=== PATIENT | female | born 1940 | race Caucasian/White ===

== ENCOUNTER → 2016-08-28 | Outpatient (CLI) | payer MEDICARE ==
--- NOTE | 2016-09-02 11:28 | RESP ---
DATE OF SERVICE: The patient underwent full pulmonary function testing including bronchodilator. The FEV1 to FVC ratio is 75%, FEV1 was 80% of predicted at 2.10 liters, FVC was 2.78 liters at 80% of predicted. There was no significant bronchodilator response. Total lung capacity was preserved at 5.54 liters at 95% of predicted. Diffusion capacity was preserved. IMPRESSION: Pulmonary function testing revealed no significant evidence of restrictive or obstructive lung disease or lung disorder. LIZBET OVALLE MD DR: ANGEL/sharron JOB#: [id number] / [id number] GISSELLE Miranda MD, WILLIAM MD
== END | disposition home or self-care (01) ==
LOC: PF 09:35
PROVIDERS: ATTEND Internal Medicine Pulmonary Disease
DX: R06.02 Shortness of breath (principal)
CPT/HCPCS: 94060; 94729

== ENCOUNTER → 2018-02-26 | Outpatient (CLI) | payer MEDICARE ==
--- NOTE | 2018-02-26 14:48 | KCIC ---
MRI Lumbar Spine without contrast History: Low back pain, radiculopathy, dull ache in the bilateral legs Technique: Multiplanar, multi sequential noncontrast MR imaging was performed of the lumbar spine. Contrast: None Comparison: None Findings: Lumbar vertebral body stature is overall maintained other than small Schmorl's nodes. There is minimal grade 1 anterior spondylolisthesis at L2-L3 and L4-5. There is advanced degenerative disc disease L3-4 and to a somewhat lesser degree at L4-5, minimally at L2-3, mild disc desiccation L1-2 and L5-S1. Conus terminates at L1-L2. There is nonspecific edema of the posterior subcutaneous fat of the lower back. There is mild lumbar levoscoliosis centered about L4. L1-L2: There is negligible posterior protrusion. Spinal canal and neural foramina are adequate. There is tiny posterior annular tear. L2-L3: There is mild buckling of the ligamentum flavum and mild to moderate facet degenerative change. There is mild partial uncovering of the posterior aspect of the disc due to spondylolisthesis and minimal bulge. Spinal canal is overall adequate. Neural foramina are overall adequate. L3-L4: There is mild facet hypertrophic change. There is minimal disc osteophyte complex greater in the far right lateral recess. Spinal canal is overall adequate. Left neural foramen is adequate, mild narrowing of the right neural foramen. L4-L5: There is moderate facet degenerative change greater on the right. There is minimal buckling of the ligamentum flavum and prominence of posterior epidural fat. There is minimal disc osteophyte complex and bulge. There is mild narrowing of the far left lateral recess. There is mild narrowing of the neural foramina bilaterally. L5-S1: There is moderate facet hypertrophic change greater on the right. There is mild buckling of the ligamentum flavum. There is mild narrowing of the far left lateral recess from posteriorly. There is mild narrowing of the left neural foramen, right neural foramen adequate. Impression: 1. There is advanced degenerative disc disease L3-4 and to a somewhat lesser degree at L4-5 with spondylosis at the same levels. 2. There is minimal grade 1 anterior spondylolisthesis L2-3 and L4-5, multilevel facet degenerative change. 3. There is mild narrowing of left lateral recess from posteriorly at L5-S1, also minimal narrowing of the far left lateral recess L4-5. 4. There is mild neural foramina compromise on the right at L3-4, on the left at L5-S1, and bilaterally at L4-5. Electronically signed by: Barry Messer MD (02/26/2018 2:45 PM) [facility]
== END | disposition home or self-care (01) ==
LOC: KCIC MRI 13:24
PROVIDERS: ATTEND Internal Medicine
DX: M43.16 Spondylolisthesis, lumbar region (principal); M51.16 Intervertebral disc disorders with radiculopathy, lumbar region; M47.896 Other spondylosis, lumbar region; M48.07 Spinal stenosis, lumbosacral region; M48.061 Spinal stenosis, lumbar region without neurogenic claudication
CPT/HCPCS: 72148

== ENCOUNTER 2018-05-21 21:24 | Observation (INO) | payer MEDICARE ==
[~2018-05-21] VITALS: Ht 175.3 cm; Wt 129.4 kg
[2018-05-21 22:38] LABS: BASO # 0.1 x10^3/uL (0.0-0.2); BASO % 1 % (0-3); EOS # 0.2 x10^3/uL (0.0-0.7); EOS % 3 % (0-3); HEMATOCRIT 38.3 % (36.0-47.0); HEMOGLOBIN 13.6 g/dL (12.0-15.5); LYMPH # 1.2 x10^3/uL (1.0-4.8); LYMPH % 18 % (24-48); MEAN CORPUSCULAR HEMOGLOBIN 33 pg (25-35); MEAN CORPUSCULAR HGB CONC 35 g/dL (31-37); MEAN CORPUSCULAR VOLUME 94 fL (79-100); MONO # 0.6 x10^3/uL (0.0-1.1); MONO % 8 % (0-9); NEUT # 4.6 x10^3uL (1.8-7.7); NEUT % 69 % (31-73); PLATELET COUNT 140 x10^3/uL (140-400); RED BLOOD COUNT 4.08 x10^6/uL (3.50-5.40); RED CELL DISTRIBUTION WIDTH 13.5 % (11.5-14.5); WHITE BLOOD COUNT 6.7 x10^3/uL (4.0-11.0)
[2018-05-21 22:51] LABS: CALCIUM 9.2 mg/dL (8.5-10.1); CREATININE 1.5 mg/dL (0.6-1.0); GFR 33.9; POTASSIUM 4.3 mmol/L (3.5-5.1)
[2018-05-21 22:52] LABS: PROTHROMBIN TIME PATIENT 12.4 SEC (11.7-14.0)
[2018-05-21 22:57] LABS: TOTAL BILIRUBIN 0.4 mg/dL (0.2-1.0); TOTAL PROTEIN 7.7 g/dL (6.4-8.2)
--- NOTE | 2018-05-21 22:58 | RAD ---
EXAM: Chest, single view. HISTORY: Chest pain COMPARISON: None. FINDINGS: A frontal view of the chest is obtained. There is stable dextro positioning of a prominent cardiac silhouette. There is no infiltrate, pleural effusion or pneumothorax. The heart is normal in size. IMPRESSION: 1. No acute pulmonary finding. 2. Stable dextro positioning of a prominent cardiac silhouette. Electronically signed by: Asuncion Saldaña MD (05/21/2018 10:55 PM) [facility]
[2018-05-21] MEDS ORDERED: LIDO:MAALOX 1:1 20 ML SINGLE DOSE. SWSW ONE (23:00)
[2018-05-21] MEDS ORDERED: ASPIRIN CHEWABLE 81 MG TABLET. PO ONE (23:00)
--- NOTE | 2018-05-21 23:04 | PHYS DOC ---
Past Medical History Past Medical History: Diabetes-Type I, Diabetes-Type II, GERD, Hypertension Additional Past Surgical Histo: bilateral rotar cuff repair, knee replacement, multiple foot surgery Alcohol Use: None Drug Use: None Adult General Chief Complaint Chief Complaint: CHEST PAIN HPI HPI Patient is a 77 year old f p/w chest pain. Onset around 10 AM after she was eating. She felt a sharp pain just in her midsternum area was radiating over into the right upper chest area. It would come and go throughout the day very time she tried to eat something it would come back. Then later on this evening he was coming more frequently it would last about 30 seconds or minutes she said she didn't really think it was worse with walking but she's not really sure she has mild shortness of breath associated with it symptoms are currently better. Review of Systems Review of Systems Constitutional: Denies fever or chills [] Eyes: Denies change in visual acuity, redness, or eye pain [] HENT: Denies nasal congestion or sore throat [] Respiratory: Denies cough or shortness of breath [] Cardiovascular: No additional information not addressed in HPI [] GI: Denies abdominal pain, nausea, vomiting, bloody stools or diarrhea [] : Denies dysuria or hematuria [] Musculoskeletal: Denies back pain or joint pain [] Integument: Denies rash or skin lesions [] Neurologic: Denies headache, focal weakness or sensory changes [] Endocrine: Denies polyuria or polydipsia [] All other systems were reviewed and found to be within normal limits, except as documented in this note. Current Medications Current Medications Current Medications Medications (Trade) Dose Ordered Sig/Andrez Start Time Stop Time Status Last Admin Dose Admin Aspirin (Children'S Aspirin) 324 mg 1X ONCE 05/21/18 23:00 05/21/18 23:01 DC 05/21/18 22:58 324 MG Multi-Ingredient Mouthwash/Gargle (Gi Cocktail) 20 ml 1X ONCE 05/21/18 23:00 05/21/18 23:01 DC 05/21/18 22:58 20 ML Allergies Allergies Allergies Coded Allergies Type Severity Reaction Last Updated Verified Penicillins Allergy Severe Rash 05/21/18 Yes levofloxacin Allergy Severe Rash 05/21/18 Yes Physical Exam Physical Exam Constitutional: Well developed, well nourished, no acute distress, non-toxic appearance. [] HENT: Normocephalic, atraumatic, bilateral external ears normal, oropharynx moist, no oral exudates, nose normal. [] Eyes: PERRLA, EOMI, conjunctiva normal, no discharge. [] Neck: Normal range of motion, no tenderness, supple, no stridor. [] Cardiovascular:Heart rate regular rhythm, 2/6 systolic murmur [] Lungs & Thorax: Bilateral breath sounds clear to auscultation [] Abdomen: Bowel sounds normal, soft, no tenderness, no masses, no pulsatile masses. [] Skin: Warm, dry, no erythema, no rash. [] Back: No tenderness, no CVA tenderness. [] Extremities: No tenderness, no cyanosis, no clubbing, ROM intact, no edema. [] Neurologic: Alert and oriented X 3, normal motor function, normal sensory function, no focal deficits noted. [] Psychologic: Affect normal, judgement normal, mood normal. [] Current Patient Data Vital Signs Vital Signs Date Time Temp Pulse Resp B/P (MAP) Pulse Ox O2 Delivery O2 Flow Rate FiO2 05/21/18 23:33 53 18 186/79 (114) 95 05/21/18 21:48 98.7 Room Air 98.7 Lab Values Laboratory Tests Test 05/21/18 22:15 White Blood Count 6.7 x10^3/uL (4.0-11.0) Red Blood Count 4.08 x10^6/uL (3.50-5.40) Hemoglobin 13.6 g/dL (12.0-15.5) Hematocrit 38.3 % (36.0-47.0) Mean Corpuscular Volume 94 fL (79-100) Mean Corpuscular Hemoglobin 33 pg (25-35) Mean Corpuscular Hemoglobin Concent 35 g/dL (31-37) Red Cell Distribution Width 13.5 % (11.5-14.5) Platelet Count 140 x10^3/uL (140-400) Neutrophils (%) (Auto) 69 % (31-73) Lymphocytes (%) (Auto) 18 % (24-48) L Monocytes (%) (Auto) 8 % (0-9) Eosinophils (%) (Auto) 3 % (0-3) Basophils (%) (Auto) 1 % (0-3) Neutrophils # (Auto) 4.6 x10^3uL (1.8-7.7) Lymphocytes # (Auto) 1.2 x10^3/uL (1.0-4.8) Monocytes # (Auto) 0.6 x10^3/uL (0.0-1.1) Eosinophils # (Auto) 0.2 x10^3/uL (0.0-0.7) Basophils # (Auto) 0.1 x10^3/uL (0.0-0.2) Prothrombin Time 12.4 SEC (11.7-14.0) Prothrombin Time INR 1.0 (0.8-1.1) Sodium Level 138 mmol/L (136-145) Potassium Level 4.3 mmol/L (3.5-5.1) Chloride Level 101 mmol/L (98-107) Carbon Dioxide Level 27 mmol/L (21-32) Anion Gap 10 (6-14) Blood Urea Nitrogen 22 mg/dL (7-20) H Creatinine 1.5 mg/dL (0.6-1.0) H Estimated GFR (Cockcroft-Gault) 33.9 BUN/Creatinine Ratio 15 (6-20) Glucose Level 194 mg/dL (70-99) H Calcium Level 9.2 mg/dL (8.5-10.1) Total Bilirubin 0.4 mg/dL (0.2-1.0) Aspartate Amino Transferase (AST) 32 U/L (15-37) Alanine Aminotransferase (ALT) 27 U/L (14-59) Alkaline Phosphatase 52 U/L (46-116) Troponin I Quantitative < 0.017 ng/mL (0.000-0.055) Total Protein 7.7 g/dL (6.4-8.2) Albumin 3.3 g/dL (3.4-5.0) L Albumin/Globulin Ratio 0.8 (1.0-1.7) L Lipase 98 U/L (73-393) Laboratory Tests 05/21/18 22:15 Laboratory Tests 05/21/18 22:15 EKG EKG []No sinus rhythm rate of 71 no acute ischemic changes noted interpreted by me the time of encounter. Radiology/Procedures Radiology/Procedures [] Impressions: MPRESSION: 1. No acute pulmonary finding. 2. Stable dextro positioning of a prominent cardiac silhouette. Electronically signed by: Asuncion Gonzalez MD (05/21/2018 10:55 PM) [facility] DICTATED and SIGNED BY: ASUNCION GONZALEZ MD DATE: 05/21/18 4529 Course & Med Decision Making Course & Med Decision Making Pertinent Labs and Imaging studies reviewed. (See chart for details) []77-year-old female with a history of obesity diabetes hypertension who is presenting with chest pain. There is definitely an atypical component is a sharp has seemed to start after eating we tried GI cocktail didn't help. She has multiple risk factors for coronary artery disease I think she warrants admission overnight for stabilization. She really has no significant right upper quadrant tenderness of course that is on the differential but I think at this point we should admit her several troponins and observe her overnight in the hospital. I tried to do a CT scan to rule out PE however she had poor GFR and so at this point time as of 1:20 AM VQ scan is currently pending. She'll be admitted to the service of Dr. elizabeth oovernight per the usual local protocol. Dragon Disclaimer Dragon Disclaimer This electronic medical record was generated, in whole or in part, using a voice recognition dictation system. Departure Departure Impression: Primary Impression: Chest pain Disposition: ADMITTED INPATIENT Admitting Physician: Ofe Elizabeth Condition: STABLE Referrals: HATTIE MARIN MD (PCP) ZORAIDA LAW MD May 21, 2018 23:04
[2018-05-21 23:06] LABS: ALBUMIN 3.3 g/dL (3.4-5.0); ALBUMIN/GLOBULIN RATIO 0.8 (1.0-1.7)
[2018-05-21] MEDS ORDERED: IV NORMAL SALINE 1000ML BAG 1,000 ML IV ONE (23:45)
[2018-05-22] MEDS ORDERED: NITROGLYCERIN SUBLINGUAL 0.4 MG BOTTLE OF 25. SL PRN
[2018-05-22] MEDS ORDERED: INSU100I17 SQ (00:54)
[2018-05-22] MEDS ORDERED: INSU100V13 SQ (00:54)
[2018-05-22] MEDS ORDERED: PREG100C PO (00:54)
[2018-05-22] MEDS ORDERED: FURO40TA4 PO (00:54)
[2018-05-22] MEDS ORDERED: METO50TA6 PO (00:54)
[2018-05-22] MEDS ORDERED: HYDR-3135 PO (00:54)
[2018-05-22] MEDS ORDERED: OMEP40CA5 PO (00:54)
[2018-05-22] MEDS ORDERED: POTA10TA12 PO (00:54)
[2018-05-22] MEDS ORDERED: NABU500T PO (00:54)
[2018-05-22] MEDS ORDERED: ASPI81TA59 PO (00:54)
[2018-05-22] MEDS ORDERED: OMEG1CAP30 PO (00:54)
[2018-05-22] MEDS ORDERED: ROPI0.5T PO (00:54)
[2018-05-22] MEDS ORDERED: DOCU100T11 PO (00:54)
[2018-05-22] MEDS ORDERED: DIPH25CA58 PO (00:54)
[2018-05-22] MEDS ORDERED: SIMV40TA3 PO (00:54)
[2018-05-22] MEDS ORDERED: LOSA-73 PO (00:54)
[2018-05-22 02:12] VITALS: BP_SYST 162; BP_SYST 191; BP_DIAS 71; BP_DIAS 79
[2018-05-22] MEDS ORDERED: OXYB5TAB33 PO (02:16)
--- NOTE | 2018-05-22 03:02 | RAD ---
Ventilation/perfusion lung scan 05/22/2018. Reason for exam: Shortness of breath with exertion for about 3 years. Chest pain. Ventilation images were obtained after inhalation of 13.5 mCi xenon-133 gas. Perfusion images were obtained after IV injection of 6.1 mCi technetium 99m MAA. Correlation is made with a radiograph done the previous day. Ventilation images show fairly homogeneous distribution of radiotracer to the lungs. Perfusion images reveal mild inhomogeneity in the distribution of radiotracer without evidence of a peripheral unmatched defect. IMPRESSION: This study is felt indicate a low probability of pulmonary embolism. Electronically signed by: Juaquin Velázquez Jr., MD (05/22/2018 2:58 AM) [facility]
[2018-05-22 05:35] LABS: CHOLESTEROL/HDL RATIO 4.3
[2018-05-22 07:00] VITALS: BP 144/65
[2018-05-22] MEDS ORDERED: INSULIN DETEMIR SQ PRN (08:45)
--- NOTE | 2018-05-22 08:56 | PDOC1 ---
History and Physical Date of Admission Date of Admission DATE: 05/22/18 TIME: 08:50 Identification/Chief Complaint Chief Complaint chest pain Source Source: Chart review, Patient History of Present Illness History of Present Illness Ms. Cannon is a 77 year old f p/w chest pain. Acute chest pain after breakfast yesterday, with burning to mid sternum. Not worse or better with exertion, sudden severe pain, and not improved with tums or omprazole, GI cocktail in the ER did not improve either. It would come and go throughout the day very time she tried to eat something it would come back. she feels the pain is different when she swallows ice chips Past Medical History Cardiovascular: HTN Musculoskeletal: low back pain Endocrine: Diabetes Social History Smoke: No ALCOHOL: none Drugs: None Current Problem List Problem List Problems Medical Problems: (1) Chest pain Status: Acute Current Medications Current Medications Current Medications Aspirin (Children'S Aspirin) 324 mg 1X ONCE PO Last administered on at 22:58; Start 05/21/18 at 23:00; Stop 05/21/18 at 23:01; Status DC Multi-Ingredient Mouthwash/Gargle (Gi Cocktail) 20 ml 1X ONCE SWSW Last administered on 05/21/18at 22:58; Start 05/21/18 at 23:00; Stop 05/21/18 at 23 :01; Status DC Sodium Chloride 1,000 ml @ 1,000 mls/hr 1X ONCE IV Last administered on 05/22at 00:23; Start 05/21/18 at 23:45; Stop 05/22/18 at 00:44; Status DC Nitroglycerin (Nitrostat) 0.4 mg PRN Q5MIN PRN SL CHEST PAIN Last administered on 05/22/18at 00:24; Start 05/22/18 at 00:00 Aspirin (Children'S Aspirin) 81 mg HS PO ; Start 05/22/18 at 21:00 Diphenhydramine HCl (Benadryl) 25 mg HS PO ; Start 05/22/18 at 21:00 Losartan Potassium (Cozaar) 50 mg DAILY PO ; Start 05/22/18 at 09:00 Metoprolol Tartrate (Lopressor) 50 mg BID PO ; Start 05/22/18 at 09:00 Potassium Chloride (Klor-Con) 10 meq DAILY PO ; Start 05/22/18 at 09:00; Status UNV Non-Formulary Medication (Docusate Sodium (Stool Softener)) 100 mg QID PO ; Start 05/22/18 at 09:00; Status UNV Non-Formulary Medication (Hydrocodone/ Apap 10-325 (Thompsons 10-325 Tablet)) 1 tab PRN Q6HRS PRN PO PAIN; Start 05/22/18 at 08:45; Status UNV Non-Formulary Medication (Insulin Aspart (Novolog Flexpen)) 1 unit TIDAC SQ ; Start 05/22/18 at 11:30; Status UNV Non-Formulary Medication (Insulin Detemir (Levemir)) 1 unit BID PRN SQ diabetes ; Start 05/22/18 at 08:45; Status UNV Non-Formulary Medication (Columbus-3/Dha/Epa/ Fish Oil (Fish Oil 1,000 Mg Softgel) ) 1 each BID PO ; Start 05/22/18 at 09:00; Status UNV Non-Formulary Medication (Omeprazole ) 40 mg DAILY PO ; Start 05/22/18 at 09:00 ; Status UNV Non-Formulary Medication (Oxybutynin Chloride (Ditropan Xl)) 1 tab DAILY PO ; Start 05/22/18 at 09:00; Status UNV Non-Formulary Medication (Pregabalin (Lyrica)) 1 cap DAILY10 PO ; Start at 10:00; Status UNV Non-Formulary Medication (Ropinirole Hcl (Requip)) 0.5 mg DAILY PO ; Start at 09:00; Status UNV Non-Formulary Medication (Simvastatin ) 40 mg DAILY PO ; Start 05/22/18 at 09: 00; Status UNV Active Scripts Active Reported Ditropan Xl (Oxybutynin Chloride) 5 Mg Tab.er.24 1 Tab PO DAILY Benadryl (Diphenhydramine Hcl) 25 Mg Capsule 25 Mg PO HS Stool Softener (Docusate Sodium) 100 Mg Tablet 100 Mg PO QID Fish Oil 1,000 Mg Softgel ([place]-3/Dha/Epa/Fish Oil) 1 Each Capsule 1 Each PO BID Children's Aspirin (Aspirin) 81 Mg Tab.chew 81 Mg PO HS Nabumetone 500 Mg Tablet 450 Mg PO PRN PRN Lyrica (Pregabalin) 100 Mg Capsule 1 Cap PO DAILY10 Requip (Ropinirole Hcl) 0.5 Mg Tablet 0.5 Mg PO DAILY Klor-Con 10 (Potassium Chloride) 10 Meq Tablet.er 10 Meq PO DAILY Furosemide 40 Mg Tablet 40 Mg PO DAILY PRN Simvastatin 40 Mg Tablet 40 Mg PO DAILY Levemir (Insulin Detemir) 100 Unit/1 Ml Vial 1 Unit SQ BID PRN Novolog Flexpen (Insulin Aspart) 100 Unit/1 Ml Insuln.pen 1 Unit SQ TIDAC Metoprolol Tartrate 50 Mg Tablet 50 Mg PO BID Omeprazole 40 Mg Capsule.dr 40 Mg PO DAILY Losartan Potassium 50 Mg Tablet 50 Mg PO DAILY Thompsons 10-325 Tablet (Acetaminophen/Hydrocodone Bitart) 1 Each Tablet 1 Tab PO PRN Q6HRS PRN Allergies Allergies: Coded Allergies: Penicillins (Verified Allergy, Severe, Rash, 05/21/18) levofloxacin (Verified Allergy, Severe, Rash, 05/21/18) ROS General: No: Chills, Night Sweats, Fatigue, Malaise, Appetite, Other PSYCHOLOGICAL ROS: No: Anxiety, Behavioral Disorder, Concentration difficultie , Decreased libido, Depression, Disorientation, Hallucinations, Hostility, Irritablity, Memory difficulties, Mood Swings, Obsessive thoughts, Physical abuse, Sexual abuse, Sleep disturbances, Suicidal ideation, Other Eyes: No Blurry vision, No Decreased vision, No Double vision, No Dry eyes, No Excessive tearing, No Eye Pain, No Itchy Eyes, No Loss of vision, No Photophobia , No Scotomata, No Uses contacts, No Uses glasses, No Other HEENT: No: Heacaches, Visual Changes, Hearing change, Nasal congestion, Nasal discharge, Oral lesions, Sinus pain, Sore Throat, Epistaxis, Sneezing, Snoring, Tinnitus, Vertigo, Vocal changes, Other Respiratory: No: Cough, Hemoptysis, Orthopnea, Pleuritic Pain, Shortness of breath, SOB with excertion, Sputum Changes, Stridor, Tachypnea, Wheezing, Other Cardiovascular: No Chest Pain, No Palpitations, No Orthopnea, No Paroxysmal Noc. Dyspnea, No Edema, No Lt Headedness, No Other Gastrointestinal: No Nausea, No Vomiting, No Abdominal Pain, No Diarrhea, No Constipation, No Melena, No Hematochezia, No Other Genitourinary: No Dysuria, No Frequency, No Incontinence, No Hematuria, No Retention, No Discharge, No Urgency, No Pain, No Flank Pain, No Other, No , No , No , No , No , No , No Musculoskeletal: No Gait Disturbance, No Joint Pain, No Joint Stiffness, No Joint Swelling, No Muscle Pain, No Muscular Weakness, No Pain In:, No Swelling In:, No Other Neurological: No Behavorial Changes, No Bowel/Bladder ControlChng, No Confusion , No Dizziness, No Gait Disturbance, No Headaches, No Impaired Coord/balance, No Memory Loss, No Numbness/Tingling, No Seizures, No Speech Problems, No Tremors, No Visual Changes, No Weakness, No Other Skin: No Dry Skin, No Eczema, No Hair Changes, No Lumps, No Mole Changes, No Mottling, No Nail Changes, No Pruritus, No Rash, No Skin Lesion Changes, No Other, No Acne Physical Exam General: Alert, Cooperative, No acute distress HEENT: Atraumatic, Mucous membr. moist/pink Lungs: Clear to auscultation, Normal air movement Heart: S1S2 Extremities: No clubbing, No edema, Normal pulses Skin: No rashes, No breakdown Neuro: Normal speech, Sensation intact, Cranial nerves 3-12 NL Psych/Mental Status: Mental status NL, Mood NL Vitals Vitals Vital Signs Date Time Temp Pulse Resp B/P (MAP) Pulse Ox O2 Delivery O2 Flow Rate FiO2 05/22/18 07:00 97.6 57 144/65 (91) 95 Room Air 97.6 05/22/18 02:12 18 Labs Labs Laboratory Tests Test 05/21/18 22:15 05/22/18 04:48 05/22/18 06:40 White Blood Count 6.7 x10^3/uL (4.0-11.0) Red Blood Count 4.08 x10^6/uL (3.50-5.40) Hemoglobin 13.6 g/dL (12.0-15.5) Hematocrit 38.3 % (36.0-47.0) Mean Corpuscular Volume 94 fL (79-100) Mean Corpuscular Hemoglobin 33 pg (25-35) Mean Corpuscular Hemoglobin Concent 35 g/dL (31-37) Red Cell Distribution Width 13.5 % (11.5-14.5) Platelet Count 140 x10^3/uL (140-400) Neutrophils (%) (Auto) 69 % (31-73) Lymphocytes (%) (Auto) 18 % (24-48) Monocytes (%) (Auto) 8 % (0-9) Eosinophils (%) (Auto) 3 % (0-3) Basophils (%) (Auto) 1 % (0-3) Neutrophils # (Auto) 4.6 x10^3uL (1.8-7.7) Lymphocytes # (Auto) 1.2 x10^3/uL (1.0-4.8) Monocytes # (Auto) 0.6 x10^3/uL (0.0-1.1) Eosinophils # (Auto) 0.2 x10^3/uL (0.0-0.7) Basophils # (Auto) 0.1 x10^3/uL (0.0-0.2) Prothrombin Time 12.4 SEC (11.7-14.0) Prothromb Time International Ratio 1.0 (0.8-1.1) Sodium Level 138 mmol/L (136-145) Potassium Level 4.3 mmol/L (3.5-5.1) Chloride Level 101 mmol/L (98-107) Carbon Dioxide Level 27 mmol/L (21-32) Anion Gap 10 (6-14) Blood Urea Nitrogen 22 mg/dL (7-20) Creatinine 1.5 mg/dL (0.6-1.0) Estimated GFR (Cockcroft-Gault) 33.9 BUN/Creatinine Ratio 15 (6-20) Glucose Level 194 mg/dL (70-99) Calcium Level 9.2 mg/dL (8.5-10.1) Total Bilirubin 0.4 mg/dL (0.2-1.0) Aspartate Amino Transf (AST/SGOT) 32 U/L (15-37) Alanine Aminotransferase (ALT/SGPT) 27 U/L (14-59) Alkaline Phosphatase 52 U/L (46-116) Troponin I Quantitative < 0.017 ng/mL (0.000-0.055) < 0.017 ng/mL (0.000-0.055) < 0.017 ng/mL (0.000-0.055) Total Protein 7.7 g/dL (6.4-8.2) Albumin 3.3 g/dL (3.4-5.0) Albumin/Globulin Ratio 0.8 (1.0-1.7) Lipase 98 U/L (73-393) Triglycerides Level 270 mg/dL (0-150) Cholesterol Level 139 mg/dL (0-200) LDL Cholesterol, Calculated 53 mg/dL (0-100) VLDL Cholesterol, Calculated 54 mg/dL (0-40) Non-HDL Cholesterol Calculated 107 mg/dL (0-129) HDL Cholesterol 32 mg/dL (40-60) Cholesterol/HDL Ratio 4.3 Laboratory Tests Test 05/21/18 22:15 05/22/18 04:48 05/22/18 06:40 White Blood Count 6.7 x10^3/uL (4.0-11.0) Red Blood Count 4.08 x10^6/uL (3.50-5.40) Hemoglobin 13.6 g/dL (12.0-15.5) Hematocrit 38.3 % (36.0-47.0) Mean Corpuscular Volume 94 fL (79-100) Mean Corpuscular Hemoglobin 33 pg (25-35) Mean Corpuscular Hemoglobin Concent 35 g/dL (31-37) Red Cell Distribution Width 13.5 % (11.5-14.5) Platelet Count 140 x10^3/uL (140-400) Neutrophils (%) (Auto) 69 % (31-73) Lymphocytes (%) (Auto) 18 % (24-48) Monocytes (%) (Auto) 8 % (0-9) Eosinophils (%) (Auto) 3 % (0-3) Basophils (%) (Auto) 1 % (0-3) Neutrophils # (Auto) 4.6 x10^3uL (1.8-7.7) Lymphocytes # (Auto) 1.2 x10^3/uL (1.0-4.8) Monocytes # (Auto) 0.6 x10^3/uL (0.0-1.1) Eosinophils # (Auto) 0.2 x10^3/uL (0.0-0.7) Basophils # (Auto) 0.1 x10^3/uL (0.0-0.2) Prothrombin Time 12.4 SEC (11.7-14.0) Prothromb Time International Ratio 1.0 (0.8-1.1) Sodium Level 138 mmol/L (136-145) Potassium Level 4.3 mmol/L (3.5-5.1) Chloride Level 101 mmol/L (98-107) Carbon Dioxide Level 27 mmol/L (21-32) Anion Gap 10 (6-14) Blood Urea Nitrogen 22 mg/dL (7-20) Creatinine 1.5 mg/dL (0.6-1.0) Estimated GFR (Cockcroft-Gault) 33.9 BUN/Creatinine Ratio 15 (6-20) Glucose Level 194 mg/dL (70-99) Calcium Level 9.2 mg/dL (8.5-10.1) Total Bilirubin 0.4 mg/dL (0.2-1.0) Aspartate Amino Transf (AST/SGOT) 32 U/L (15-37) Alanine Aminotransferase (ALT/SGPT) 27 U/L (14-59) Alkaline Phosphatase 52 U/L (46-116) Troponin I Quantitative < 0.017 ng/mL (0.000-0.055) < 0.017 ng/mL (0.000-0.055) < 0.017 ng/mL (0.000-0.055) Total Protein 7.7 g/dL (6.4-8.2) Albumin 3.3 g/dL (3.4-5.0) Albumin/Globulin Ratio 0.8 (1.0-1.7) Lipase 98 U/L (73-393) Triglycerides Level 270 mg/dL (0-150) Cholesterol Level 139 mg/dL (0-200) LDL Cholesterol, Calculated 53 mg/dL (0-100) VLDL Cholesterol, Calculated 54 mg/dL (0-40) Non-HDL Cholesterol Calculated 107 mg/dL (0-129) HDL Cholesterol 32 mg/dL (40-60) Cholesterol/HDL Ratio 4.3 VTE Prophylaxis Ordered VTE Prophylaxis Devices: No VTE Pharmacological Prophylaxi: No Assessment/Plan Assessment/Plan chest pain, mid sternal, thought to be angina in the ER, r/o ACS and CV consulted pt has htn and Dm2 and family history, no prior CAD mid sternal burning pain does worsen with swallowing ICE chips this AM. has long history of GERD, will likely need EGD, probably not crucial to be done inpatient, will consult ALYSSA MARTINEZ MD May 22, 2018 08:56
[2018-05-22] MEDS ORDERED: PANTOPRAZOLE 40 MG TABLET.DR. PO SCH ×2 (09:00→16:30)
[2018-05-22] MEDS ORDERED: DOCUSATE SODIUM 100 MG CAPSULE. PO SCH (09:00)
[2018-05-22] MEDS ORDERED: LOSARTAN POTASSIUM 50 MG TABLET. PO SCH (09:00)
[2018-05-22] MEDS ORDERED: HYDROcodone/APAP 10/325 1 TAB TABLET PO PRN (09:00)
[2018-05-22] MEDS ORDERED: METOPROLOL TART IMMED RELEASE 50 MG TABLET. PO SCH (09:00)
[2018-05-22] MEDS ORDERED: POTASSIUM CHLORIDE 10 MEQ TABLET.ER. PO SCH (09:00)
[2018-05-22] MEDS ORDERED: OMEGA-3 FATTY ACIDS/FISH OIL 1,000 MG CAPSULE. PO SCH (09:00)
[2018-05-22] MEDS ORDERED: PREGABALIN 50 MG CAPSULE PO SCH (09:15)
[2018-05-22] MEDS ORDERED: rOPINIRole 0.25 MG TABLET. PO SCH ×2 (10:00)
[2018-05-22] MEDS ORDERED: NON FORMULARY ITEM (Insulin Aspart (Novolog Flexpen) 1 UNIT) SQ SCH (11:30)
[2018-05-22 11:43] VITALS: BP 161/72
--- NOTE | 2018-05-22 12:19 | PDOC2 ---
CONSULT Date of Consult Date of Consult DATE: 05/22/18 TIME: 12:17 Reason for Consult Reason for Consult: Chest pain Referring Physician Referring Physician: Dr. Steward Identification/Chief Complaint Chief Complaint Chest pain Source Source: Chart review, Patient History of Present Illness Reason for Visit: 77-year-old female presented with retrosternal burning chest pain worse with eating ice chips or drinking any liquids. She denied any exertional component but she also denied any orthopnea/PND, palpitations or syncope. Past Medical History Cardiovascular: HTN GI: GERD Musculoskeletal: low back pain Endocrine: Diabetes Social History No ALCOHOL: none Drugs: None Current Problem List Problem List Problems Medical Problems: (1) Chest pain Status: Acute Current Medications Current Medications Current Medications Aspirin (Children'S Aspirin) 324 mg 1X ONCE PO Last administered on at 22:58; Start 05/21/18 at 23:00; Stop 05/21/18 at 23:01; Status DC Multi-Ingredient Mouthwash/Gargle (Gi Cocktail) 20 ml 1X ONCE SWSW Last administered on 05/21/18at 22:58; Start 05/21/18 at 23:00; Stop 05/21/18 at 23 :01; Status DC Sodium Chloride 1,000 ml @ 1,000 mls/hr 1X ONCE IV Last administered on 05/22at 00:23; Start 05/21/18 at 23:45; Stop 05/22/18 at 00:44; Status DC Nitroglycerin (Nitrostat) 0.4 mg PRN Q5MIN PRN SL CHEST PAIN Last administered on 05/22/18at 00:24; Start 05/22/18 at 00:00 Aspirin (Children'S Aspirin) 81 mg HS PO ; Start 05/22/18 at 21:00 Diphenhydramine HCl (Benadryl) 25 mg HS PO ; Start 05/22/18 at 21:00 Losartan Potassium (Cozaar) 50 mg DAILY PO ; Start 05/22/18 at 09:00 Metoprolol Tartrate (Lopressor) 50 mg BID PO ; Start 05/22/18 at 09:00 Potassium Chloride (Klor-Con) 10 meq DAILY PO ; Start 05/22/18 at 09:00 Docusate Sodium (Colace) 100 mg BID PO ; Start 05/22/18 at 09:00 Acetaminophen/ Hydrocodone Bitart (Lortab 10/325) 1 tab PRN Q6HRS PRN PO PAIN; Start 05/22/18 at 09:00 Non-Formulary Medication (Insulin Aspart (Novolog Flexpen)) 1 unit TIDAC SQ ; Start 05/22/18 at 11:30; Status UNV Non-Formulary Medication (Insulin Detemir (Levemir)) 1 unit BID PRN SQ diabetes ; Start 05/22/18 at 08:45; Status UNV Fish Oil (Fish Oil) 1,000 mg BID PO ; Start 05/22/18 at 09:00 Pantoprazole Sodium (Protonix) 40 mg DAILYAC PO ; Start 05/22/18 at 09:00 Oxybutynin Chloride (Ditropan) 5 mg [id number] PO ; Start 05/22/18 at 09:00 Pregabalin (Lyrica) 100 mg DAILY PO ; Start 05/22/18 at 09:15 Ropinirole HCl (Requip) 0.25 mg DAILY PO ; Start 05/22/18 at 10:00; Stop 05/22 at 10:00; Status DC Simvastatin (Zocor) 40 mg QHS PO ; Start 05/22/18 at 21:00 Ropinirole HCl (Requip) 0.5 mg DAILY PO ; Start 05/22/18 at 10:00 Active Scripts Active Reported Ditropan Xl (Oxybutynin Chloride) 5 Mg Tab.er.24 1 Tab PO DAILY Benadryl (Diphenhydramine Hcl) 25 Mg Capsule 25 Mg PO HS Stool Softener (Docusate Sodium) 100 Mg Tablet 100 Mg PO QID Fish Oil 1,000 Mg Softgel ([place]-3/Dha/Epa/Fish Oil) 1 Each Capsule 1 Each PO BID Children's Aspirin (Aspirin) 81 Mg Tab.chew 81 Mg PO HS Nabumetone 500 Mg Tablet 450 Mg PO PRN PRN Lyrica (Pregabalin) 100 Mg Capsule 1 Cap PO DAILY10 Requip (Ropinirole Hcl) 0.5 Mg Tablet 0.5 Mg PO DAILY Klor-Con 10 (Potassium Chloride) 10 Meq Tablet.er 10 Meq PO DAILY Furosemide 40 Mg Tablet 40 Mg PO DAILY PRN Simvastatin 40 Mg Tablet 40 Mg PO DAILY Levemir (Insulin Detemir) 100 Unit/1 Ml Vial 1 Unit SQ BID PRN Novolog Flexpen (Insulin Aspart) 100 Unit/1 Ml Insuln.pen 1 Unit SQ TIDAC Metoprolol Tartrate 50 Mg Tablet 50 Mg PO BID Omeprazole 40 Mg Capsule.dr 40 Mg PO DAILY Losartan Potassium 50 Mg Tablet 50 Mg PO DAILY [place] 10-325 Tablet (Acetaminophen/Hydrocodone Bitart) 1 Each Tablet 1 Tab PO PRN Q6HRS PRN Allergies Allergies: Coded Allergies: Penicillins (Verified Allergy, Severe, Rash, 05/21/18) levofloxacin (Verified Allergy, Severe, Rash, 05/21/18) ROS PSYCHOLOGICAL ROS: No: Hallucinations Eyes: No Loss of vision HEENT: No: Epistaxis Cardiovascular: yes Chest Pain Gastrointestinal: Yes Nausea; No Vomiting Genitourinary: No Hematuria Neurological: No Seizures Skin: No Rash Physical Exam General: Alert, Oriented X3 HEENT: Atraumatic Lungs: Clear to auscultation Heart: Regular rate Abdomen: Soft Extremities: No clubbing, No edema Psych/Mental Status: Mood NL Vitals VITALS Vital Signs Date Time Temp Pulse Resp B/P (MAP) Pulse Ox O2 Delivery O2 Flow Rate FiO2 05/22/18 11:43 97.7 50 161/72 (101) 93 Room Air 97.7 05/22/18 02:12 18 Labs Labs Laboratory Tests Test 05/21/18 22:15 05/22/18 04:48 05/22/18 06:40 White Blood Count 6.7 x10^3/uL (4.0-11.0) Red Blood Count 4.08 x10^6/uL (3.50-5.40) Hemoglobin 13.6 g/dL (12.0-15.5) Hematocrit 38.3 % (36.0-47.0) Mean Corpuscular Volume 94 fL (79-100) Mean Corpuscular Hemoglobin 33 pg (25-35) Mean Corpuscular Hemoglobin Concent 35 g/dL (31-37) Red Cell Distribution Width 13.5 % (11.5-14.5) Platelet Count 140 x10^3/uL (140-400) Neutrophils (%) (Auto) 69 % (31-73) Lymphocytes (%) (Auto) 18 % (24-48) Monocytes (%) (Auto) 8 % (0-9) Eosinophils (%) (Auto) 3 % (0-3) Basophils (%) (Auto) 1 % (0-3) Neutrophils # (Auto) 4.6 x10^3uL (1.8-7.7) Lymphocytes # (Auto) 1.2 x10^3/uL (1.0-4.8) Monocytes # (Auto) 0.6 x10^3/uL (0.0-1.1) Eosinophils # (Auto) 0.2 x10^3/uL (0.0-0.7) Basophils # (Auto) 0.1 x10^3/uL (0.0-0.2) Prothrombin Time 12.4 SEC (11.7-14.0) Prothromb Time International Ratio 1.0 (0.8-1.1) Sodium Level 138 mmol/L (136-145) Potassium Level 4.3 mmol/L (3.5-5.1) Chloride Level 101 mmol/L (98-107) Carbon Dioxide Level 27 mmol/L (21-32) Anion Gap 10 (6-14) Blood Urea Nitrogen 22 mg/dL (7-20) Creatinine 1.5 mg/dL (0.6-1.0) Estimated GFR (Cockcroft-Gault) 33.9 BUN/Creatinine Ratio 15 (6-20) Glucose Level 194 mg/dL (70-99) Calcium Level 9.2 mg/dL (8.5-10.1) Total Bilirubin 0.4 mg/dL (0.2-1.0) Aspartate Amino Transf (AST/SGOT) 32 U/L (15-37) Alanine Aminotransferase (ALT/SGPT) 27 U/L (14-59) Alkaline Phosphatase 52 U/L (46-116) Troponin I Quantitative < 0.017 ng/mL (0.000-0.055) < 0.017 ng/mL (0.000-0.055) < 0.017 ng/mL (0.000-0.055) Total Protein 7.7 g/dL (6.4-8.2) Albumin 3.3 g/dL (3.4-5.0) Albumin/Globulin Ratio 0.8 (1.0-1.7) Lipase 98 U/L (73-393) Triglycerides Level 270 mg/dL (0-150) Cholesterol Level 139 mg/dL (0-200) LDL Cholesterol, Calculated 53 mg/dL (0-100) VLDL Cholesterol, Calculated 54 mg/dL (0-40) Non-HDL Cholesterol Calculated 107 mg/dL (0-129) HDL Cholesterol 32 mg/dL (40-60) Cholesterol/HDL Ratio 4.3 Laboratory Tests Test 05/21/18 22:15 05/22/18 04:48 05/22/18 06:40 White Blood Count 6.7 x10^3/uL (4.0-11.0) Red Blood Count 4.08 x10^6/uL (3.50-5.40) Hemoglobin 13.6 g/dL (12.0-15.5) Hematocrit 38.3 % (36.0-47.0) Mean Corpuscular Volume 94 fL (79-100) Mean Corpuscular Hemoglobin 33 pg (25-35) Mean Corpuscular Hemoglobin Concent 35 g/dL (31-37) Red Cell Distribution Width 13.5 % (11.5-14.5) Platelet Count 140 x10^3/uL (140-400) Neutrophils (%) (Auto) 69 % (31-73) Lymphocytes (%) (Auto) 18 % (24-48) Monocytes (%) (Auto) 8 % (0-9) Eosinophils (%) (Auto) 3 % (0-3) Basophils (%) (Auto) 1 % (0-3) Neutrophils # (Auto) 4.6 x10^3uL (1.8-7.7) Lymphocytes # (Auto) 1.2 x10^3/uL (1.0-4.8) Monocytes # (Auto) 0.6 x10^3/uL (0.0-1.1) Eosinophils # (Auto) 0.2 x10^3/uL (0.0-0.7) Basophils # (Auto) 0.1 x10^3/uL (0.0-0.2) Prothrombin Time 12.4 SEC (11.7-14.0) Prothromb Time International Ratio 1.0 (0.8-1.1) Sodium Level 138 mmol/L (136-145) Potassium Level 4.3 mmol/L (3.5-5.1) Chloride Level 101 mmol/L (98-107) Carbon Dioxide Level 27 mmol/L (21-32) Anion Gap 10 (6-14) Blood Urea Nitrogen 22 mg/dL (7-20) Creatinine 1.5 mg/dL (0.6-1.0) Estimated GFR (Cockcroft-Gault) 33.9 BUN/Creatinine Ratio 15 (6-20) Glucose Level 194 mg/dL (70-99) Calcium Level 9.2 mg/dL (8.5-10.1) Total Bilirubin 0.4 mg/dL (0.2-1.0) Aspartate Amino Transf (AST/SGOT) 32 U/L (15-37) Alanine Aminotransferase (ALT/SGPT) 27 U/L (14-59) Alkaline Phosphatase 52 U/L (46-116) Troponin I Quantitative < 0.017 ng/mL (0.000-0.055) < 0.017 ng/mL (0.000-0.055) < 0.017 ng/mL (0.000-0.055) Total Protein 7.7 g/dL (6.4-8.2) Albumin 3.3 g/dL (3.4-5.0) Albumin/Globulin Ratio 0.8 (1.0-1.7) Lipase 98 U/L (73-393) Triglycerides Level 270 mg/dL (0-150) Cholesterol Level 139 mg/dL (0-200) LDL Cholesterol, Calculated 53 mg/dL (0-100) VLDL Cholesterol, Calculated 54 mg/dL (0-40) Non-HDL Cholesterol Calculated 107 mg/dL (0-129) HDL Cholesterol 32 mg/dL (40-60) Cholesterol/HDL Ratio 4.3 Assessment/Plan Assessment/Plan 1. Chest pain with atypical features: Most probably GI etiology. Myocardial infarction has been ruled out. Continue current workup per gastroenterology team. We will consider ischemic evaluation with stress test as an outpatient. 2. Accelerated hypertension: Resume home medications and titrate for better control 3. Hyperlipidemia: Statins 4. Diabetes mellitus type 2: Treat per IM Thank you for your consultation THOMAS OJEDA MD May 22, 2018 12:19
[2018-05-22] MEDS: OXYBUTYNIN CHLORIDE 5 MG TABLET PO SCH ×2 (13:32→14:00)
[2018-05-22 15:00] VITALS: BP 149/60
--- NOTE | 2018-05-22 15:01 | PDOC2 ---
GI CONSULT Reason For Consult: Chest pain/GERD HPI: HPI: 77 y/o female admitted with CP. Describes mid-substernal burning. Not better after GI cocktail in ER. Had persisted for some hours before coming to ER. Not exertional. Has apparently had some of this before; on occasion it will radiate to the interscapular area posteriorly. Long h/o heartburn; took BID PPI for years. Was taken off not long ago with recurrent issues and re-started on PPI but only once daily. Having to use TUMS frequently. Occasional dysphagia; rarely has to regurgitate bolus. No PUD. No prior EGD. S/p gillian for stones. No liver or pancreatic history. No tobacco or alcohol use. Daily low-dose ASA; occasional NSAID use. Chronic constipation on "stool softeners" daily. No diarrhea, hematochezia or melena. Had colonoscopy with Dr. Magda Ny more than 10 years ago recalled and "OK". Negative Hemoccult 6 month ago. Wt/appetite stable. No N, V. GIFH positive for polyps in sister. PMH: PMH: DM, HTN, peripheral neuropathy, OA, chronic back pain. S/p gillian, foot surgery , TKR. Social History: Smoke: No ALCOHOL: none Drugs: None ROS: GEN: Denies fevers, chills, sweats HEENT: Denies blurred vision, sore throat CV: Denies chest pain RESP: Denies shortness of air, cough GI: Per HPI : Denies hematuria, dysuria ENDO: Denies weight changes NEURO: Denies confusion, dizziness MSK: Denies weakness, joint pain/swelling SKIN: Denies jaundice, pruritus Vitals: Vitals: Vital Signs Date Time Temp Pulse Resp B/P (MAP) Pulse Ox O2 Delivery O2 Flow Rate FiO2 05/22/18 13:32 50 161/72 05/22/18 11:43 97.7 93 Room Air 97.7 05/22/18 02:12 18 Labs: Labs: Laboratory Tests Test 05/21/18 22:15 05/22/18 04:48 05/22/18 06:40 05/22/18 12:00 White Blood Count 6.7 x10^3/uL (4.0-11.0) Red Blood Count 4.08 x10^6/uL (3.50-5.40) Hemoglobin 13.6 g/dL (12.0-15.5) Hematocrit 38.3 % (36.0-47.0) Mean Corpuscular Volume 94 fL (79-100) Mean Corpuscular Hemoglobin 33 pg (25-35) Mean Corpuscular Hemoglobin Concent 35 g/dL (31-37) Red Cell Distribution Width 13.5 % (11.5-14.5) Platelet Count 140 x10^3/uL (140-400) Neutrophils (%) (Auto) 69 % (31-73) Lymphocytes (%) (Auto) 18 % (24-48) Monocytes (%) (Auto) 8 % (0-9) Eosinophils (%) (Auto) 3 % (0-3) Basophils (%) (Auto) 1 % (0-3) Neutrophils # (Auto) 4.6 x10^3uL (1.8-7.7) Lymphocytes # (Auto) 1.2 x10^3/uL (1.0-4.8) Monocytes # (Auto) 0.6 x10^3/uL (0.0-1.1) Eosinophils # (Auto) 0.2 x10^3/uL (0.0-0.7) Basophils # (Auto) 0.1 x10^3/uL (0.0-0.2) Prothrombin Time 12.4 SEC (11.7-14.0) Prothromb Time International Ratio 1.0 (0.8-1.1) Sodium Level 138 mmol/L (136-145) Potassium Level 4.3 mmol/L (3.5-5.1) Chloride Level 101 mmol/L (98-107) Carbon Dioxide Level 27 mmol/L (21-32) Anion Gap 10 (6-14) Blood Urea Nitrogen 22 mg/dL (7-20) Creatinine 1.5 mg/dL (0.6-1.0) Estimated GFR (Cockcroft-Gault) 33.9 BUN/Creatinine Ratio 15 (6-20) Glucose Level 194 mg/dL (70-99) Calcium Level 9.2 mg/dL (8.5-10.1) Total Bilirubin 0.4 mg/dL (0.2-1.0) Aspartate Amino Transf (AST/SGOT) 32 U/L (15-37) Alanine Aminotransferase (ALT/SGPT) 27 U/L (14-59) Alkaline Phosphatase 52 U/L (46-116) Troponin I Quantitative < 0.017 ng/mL (0.000-0.055) < 0.017 ng/mL (0.000-0.055) < 0.017 ng/mL (0.000-0.055) < 0.017 ng/mL (0.000-0.055) Total Protein 7.7 g/dL (6.4-8.2) Albumin 3.3 g/dL (3.4-5.0) Albumin/Globulin Ratio 0.8 (1.0-1.7) Lipase 98 U/L (73-393) Triglycerides Level 270 mg/dL (0-150) Cholesterol Level 139 mg/dL (0-200) LDL Cholesterol, Calculated 53 mg/dL (0-100) VLDL Cholesterol, Calculated 54 mg/dL (0-40) Non-HDL Cholesterol Calculated 107 mg/dL (0-129) HDL Cholesterol 32 mg/dL (40-60) Cholesterol/HDL Ratio 4.3 Allergies: Coded Allergies: Penicillins (Verified Allergy, Severe, Rash, 05/21/18) levofloxacin (Verified Allergy, Severe, Rash, 05/21/18) Medications: Current Medications Medications (Trade) Dose Ordered Sig/Andrez Route PRN Reason Start Time Stop Time Status Last Admin Dose Admin Aspirin (Children'S Aspirin) 324 mg 1X ONCE PO 05/21/18 23:00 05/21/18 23:01 DC 05/21/18 22:58 Multi-Ingredient Mouthwash/Gargle (Gi Cocktail) 20 ml 1X ONCE SWSW 05/21/18 23:00 05/21/18 23:01 DC 05/21/18 22:58 Sodium Chloride 1,000 ml @ 1,000 mls/hr 1X ONCE IV 05/21/18 23:45 05/22/18 00:44 DC 05/22/18 00:23 Nitroglycerin (Nitrostat) 0.4 mg PRN Q5MIN PRN SL CHEST PAIN 05/22/18 00:00 05/22/18 00:24 Losartan Potassium (Cozaar) 50 mg DAILY PO 05/22/18 09:00 05/22/18 13:32 Metoprolol Tartrate (Lopressor) 50 mg BID PO 05/22/18 09:00 05/22/18 13:31 Potassium Chloride (Klor-Con) 10 meq DAILY PO 05/22/18 09:00 05/22/18 13:32 Docusate Sodium (Colace) 100 mg BID PO 05/22/18 09:00 05/22/18 13:32 Fish Oil (Fish Oil) 1,000 mg BID PO 05/22/18 09:00 05/22/18 13:32 Oxybutynin Chloride (Ditropan) 5 mg [id number] PO 05/22/18 09:00 05/22/18 13:32 Pregabalin (Lyrica) 100 mg DAILY PO 05/22/18 09:15 05/22/18 13:31 Ropinirole HCl (Requip) 0.5 mg DAILY PO 05/22/18 10:00 05/22/18 13:32 Imaging: Imaging: None GI-related. PE: GEN: NAD HEENT: Atraumatic, PERRLA LUNGS: CTAB HEART: RRR, no murmurs ABD: NABS, S/ND/NT, no masses EXTREMITY: No edema SKIN: No rashes, no jaundice NEURO/PSYCH: A & O 3 A/P: A/P: IMP: Chest pain, atypical. GERD may be cause. Chronic dyspepsia c/w GERD with occasional dysphagia. S/p gillian. CRC screening; a bit overdue for repeat, particularly with FH polyps. REC: Continue PPI. Would merit EGD at some point; need not happen here. Should consider repeating colonoscopy at least once more. Other pending. Thank you for allowing me to assist in the care of this patient. Please call if questions. ANN-MARIE ALBERTO MD May 22, 2018 15:01
[2018-05-22] MEDS ORDERED: SIMVASTATIN 40 MG TABLET. PO SCH (21:00)
[2018-05-22] MEDS ORDERED: ASPIRIN CHEWABLE 81 MG TABLET. PO SCH (21:00)
[2018-05-22] MEDS ORDERED: diphenhydrAMINE HCL 25 MG CAPSULE PO SCH (21:00)
--- NOTE | 2018-05-23 04:13 | EKG ---
[facility] [address] [place] [address] Test Date: 2018-05-21 Test Time: 21:34:45 Pat Name: BERNIE REED Department: Room: 256 1 Gender: Female Java J[employer] Developer: : 1940 Requested By: ZORAIDA LAW Order Number: [id number] Reading MD: Charles Cornelius Measurements Intervals [place] Rate: 71 P: 41 VA: 216 QRS: -7 QRSD: 102 T: 63 QT: 422 QTc: 464 Interpretive Statements SINUS RHYTHM LEFTWARD AXIS Electronically Signed On 05-28-2018 15:16:39 MEDICAL RECORD SPECIALIST by Charles Cornelius
== END 2018-05-22 17:16 | disposition home or self-care (01) ==
LOC: ER 21:24 → 2 SOUTH 23:40
PROVIDERS: ADMIT Internal Medicine; ATTEND Internal Medicine
DX: R07.89 Other chest pain (principal); I10 Essential (primary) hypertension; E10.9 Type 1 diabetes mellitus without complications; E10.42 Type 1 diabetes mellitus with diabetic polyneuropathy; E78.5 Hyperlipidemia, unspecified; K21.9 Gastro-esophageal reflux disease without esophagitis; Z79.4 Long term (current) use of insulin; Z96.659 Presence of unspecified artificial knee joint; Z96.653 Presence of artificial knee joint, bilateral
CPT/HCPCS: 36415; 71045; 78582; 80053; 80061; 83690; 84484; 85025; 85610; 93005; 99284; A9540; A9558; G0378; J7030; 96374; G0379

== ENCOUNTER → 2018-06-14 | Day surgery (SDC) | payer MEDICARE ==
[~2018-06-14] MED LIST: ASPI81TA59 PO; CRAN500T2 PO; DIPH25CA58 PO; DOCU100T11 PO; FURO40TA4 PO; HYDR-3135 PO; HYDROmorphone 2 MG/ML VIAL IV PRN; INSU100I17 SQ; INSU100V13 SQ; IV RINGERS,LACTATED 1000ML 1,000 ML IV SCH; LIDOCAINE 1% PF 2 ML VIAL. ID PRN; LOSA-73 PO; METO50TA6 PO; MORPHINE SULFATE 4 MG/ML VIAL. IV PRN; NABU500T PO; OMEG1CAP30 PO; OMEP40CA5 PO; ONDANSETRON PF 4 MG/2 ML VIAL. IV PRN; OXYB5TAB33 PO; POTA10TA12 PO; PREG100C PO; PROCHLORPERAZINE 10 MG/2 ML VIAL. IV PRN; PROPOFOL 20 ML IV ONE; ROPI0.5T PO; SIMV40TA3 PO; fentaNYL PF VIAL 100 MCG/2 ML VIAL IV PRN
--- NOTE | 2018-06-14 12:42 | PDOC1 ---
History and Physical Date of Admission Date of Admission DATE: 06/14/18 TIME: 12:33 Identification/Chief Complaint Chief Complaint Atypical chest pain/chronic heartburn Source Source: Chart review, Patient History of Present Illness History of Present Illness 77 y/o female with atypical chest pain and chronic heartburn. On BID PPI a long time; more recently once daily. No prior EGD/Contreras's screening. Occasional dysphagia/rare regurgitation. No PUD, liver or pancreatic history. S/p gillian. Chronic constipation on "stool softeners". Colonoscopy >10 years ago recalled as normal. Recently negative hemoccults. No overt bleeding, nausea or vomiting. GIFH positive for polyps in sister. Past Medical History Cardiovascular: HTN CENTRAL NERVOUS SYSTEM: Periperal neuropathy Musculoskeletal: low back pain, Osteoarthritis Endocrine: Diabetes Past Surgical History Past Surgical History: Cholecystectomy, Total knee replacement, Other ("foot surgery") Family History Family History: Other (none pertinent) Social History Smoke: No ALCOHOL: none Drugs: None Current Medications Current Medications Current Medications Ondansetron HCl (Zofran) 4 mg PRN Q6HRS PRN IV NAUSEA/VOMITING; Start 06/14/18 at 07:45; Stop 06/15/18 at 07:44 Fentanyl Citrate (Fentanyl 2ml Vial) 25 mcg PRN Q5MIN PRN IV MILD PAIN; Start 06/14/18 at 07:45; Stop 06/15/18 at 07:44 Fentanyl Citrate (Fentanyl 2ml Vial) 50 mcg PRN Q5MIN PRN IV MODERATE TO SEVERE PAIN; Start 06/14/18 at 07:45; Stop 06/15/18 at 07:44 Morphine Sulfate (Morphine Sulfate) 1 mg PRN Q10MIN PRN IV SEVERE PAIN; Start 06/14/18 at 07:45; Stop 06/15/18 at 07:44 Ringer's Solution 1,000 ml @ 30 mls/hr Q24H IV ; Start 06/14/18 at 07:36; Stop 06/14/18 at 19:35 Lidocaine HCl (Xylocaine-Mpf 1% 2ml Vial) 2 ml 1X PRN PRN ID IV START; Start at 07:45; Stop 06/15/18 at 07:44 Hydromorphone HCl (Dilaudid) 0.5 mg PRN Q10MIN PRN IV SEV PAIN, Second choice; Start 06/14/18 at 07:45; Stop 06/15/18 at 07:44 Prochlorperazine Edisylate (Compazine) 5 mg PACU PRN PRN IV NAUSEA, MRX1; Start 06/14/18 at 07:45; Stop 06/15/18 at 07:44 Active Scripts Active Reported Ditropan Xl (Oxybutynin Chloride) 5 Mg Tab.er.24 1 Tab PO DAILY Benadryl (Diphenhydramine Hcl) 25 Mg Capsule 25 Mg PO HS Stool Softener (Docusate Sodium) 100 Mg Tablet 100 Mg PO QID Fish Oil 1,000 Mg Softgel ([place]-3/Dha/Epa/Fish Oil) 1 Each Capsule 1 Each PO BID Children's Aspirin (Aspirin) 81 Mg Tab.chew 81 Mg PO HS Nabumetone 500 Mg Tablet 450 Mg PO PRN PRN Lyrica (Pregabalin) 100 Mg Capsule 1 Cap PO DAILY10 Requip (Ropinirole Hcl) 0.5 Mg Tablet 0.5 Mg PO DAILY Klor-Con 10 (Potassium Chloride) 10 Meq Tablet.er 10 Meq PO DAILY Furosemide 40 Mg Tablet 40 Mg PO DAILY PRN Simvastatin 40 Mg Tablet 40 Mg PO DAILY Levemir (Insulin Detemir) 100 Unit/1 Ml Vial 1 Unit SQ BID PRN Novolog Flexpen (Insulin Aspart) 100 Unit/1 Ml Insuln.pen 1 Unit SQ TIDAC Metoprolol Tartrate 50 Mg Tablet 50 Mg PO BID Omeprazole 40 Mg Capsule.dr 40 Mg PO DAILY Losartan Potassium 50 Mg Tablet 50 Mg PO DAILY [place] 10-325 Tablet (Acetaminophen/Hydrocodone Bitart) 1 Each Tablet 1 Tab PO PRN Q6HRS PRN Allergies Allergies: Coded Allergies: Penicillins (Verified Allergy, Severe, Rash, 05/21/18) levofloxacin (Verified Allergy, Severe, Rash, 05/21/18) ROS Review of System Otherwise non-contributory. Physical Exam General: Alert, Oriented X3, Cooperative, No acute distress Lungs: Clear to auscultation Heart: S1S2, RRR, no gallops, no murmurs Abdomen: Normal bowel sounds, Soft, No tenderness, No hepatosplenomegaly, No masses Rectal Exam: not examined Extremities: No cyanosis, No edema Skin: No significant lesion Neuro: Normal speech, Strength at 5/5 X4 ext, Normal tone, Sensation intact, Cranial nerves 3-12 NL, Reflexes 2+ Psych/Mental Status: Mental status NL, Mood NL Vitals Vitals See nursing record. Labs Labs Laboratory Tests Test 06/14/18 12:26 Glucose (Fingerstick) 203 mg/dL (70-99) Laboratory Tests Test 06/14/18 12:26 Glucose (Fingerstick) 203 mg/dL (70-99) VTE Prophylaxis Ordered VTE Prophylaxis Devices: No VTE Pharmacological Prophylaxi: No Assessment/Plan Assessment/Plan IMP: Chronic GERD; some concern re: Contreras's. No prior EGD. PLAN: EGD. ANN-MARIE ALBERTO MD Jun 14, 2018 12:42
--- NOTE | 2018-06-14 12:58 | PDOC4 ---
PROCEDURE Procedure EGD Indication: Chronic heartburn; r/o Contreras's Meds: per anesthesia Findings: E--Irregular Z-line c/w healed esophagitis at 39cm. No Contreras's. G--Retained food, body and antrum. Otherwise normal. Normal retroflex. D--Food in bulb; rest normal to second portion. Carmine. well. IMP: Healed reflux w/o Contreras's. Possible gastroparesis; no h/o issues with this however. REC: Continue PPI as now. Will suggest f/u in 2 weeks to discuss. Could consider colonoscopy, particularly with sister's h/o polyps. Will discuss at f/u. ANN-MARIE ALBERTO MD Jun 14, 2018 12:58
[2018-06-14 13:23] VITALS: BP 123/56
== END | disposition home or self-care (01) ==
LOC: SURG 11:35
PROVIDERS: ATTEND Internal Medicine Gastroenterology
DX: K21.0 Gastro-esophageal reflux disease with esophagitis (principal); I10 Essential (primary) hypertension; E11.42 Type 2 diabetes mellitus with diabetic polyneuropathy; Z88.0 Allergy status to penicillin; Z88.1 Allergy status to other antibiotic agents; M19.90 Unspecified osteoarthritis, unspecified site; Z98.890 Other specified postprocedural states; Z90.49 Acquired absence of other specified parts of digestive tract; Z79.899 Other long term (current) drug therapy; Z79.84 Long term (current) use of oral hypoglycemic drugs
CPT/HCPCS: 43235; 82962; J2704

== ENCOUNTER 2021-03-06 09:22 | Day surgery (SDC) | payer MEDICARE ==
[~2021-03-06] VITALS: Ht 172.7 cm; Wt 124.0 kg
[~2021-03-06 09:22] MED LIST changes: +ATOR40TA59 PO; -CRAN500T2 PO; +CRAN500T3 PO; -HYDROmorphone 2 MG/ML VIAL IV PRN; +LEVO125T5 PO; -LIDOCAINE 1% PF 2 ML VIAL. ID PRN; +LIDOCAINE 2% JELLY 6ML IN APPLICATOR. OD ONE; -MORPHINE SULFATE 4 MG/ML VIAL. IV PRN; -NABU500T PO; +NABU500T11 PO; -OMEP40CA5 PO; +OMEP40CA7 PO; -ONDANSETRON PF 4 MG/2 ML VIAL. IV PRN; -PROCHLORPERAZINE 10 MG/2 ML VIAL. IV PRN; +PROPARACAINE 0.5% OPHTH SOLUTION 15ML BOTTLE. OD ONE; -PROPOFOL 20 ML IV ONE; +SIMV40TA18 PO; -SIMV40TA3 PO; +TOBRAMYCIN 0.3% OPHTH SOLUTION 5ML BOTTLE. OD ONE; -fentaNYL PF VIAL 100 MCG/2 ML VIAL IV PRN
[2021-03-06] MEDS ORDERED: INSULIN LISPRO 100 UNIT/ML 3ML VIAL for OP,RR ONLY. SQ PRN (09:45)
[2021-03-06 09:56] VITALS: BP 172/75
[2021-03-06] MEDS: PHENYLEPHRINE 10% OPHTH SOLUTION 5ML BOTTLE. OD SCH ×3 (10:00→10:11)
[2021-03-06] MEDS: CYCLOPENTOLATE 2% OPHTH SOLUTION 2ML BOTTLE. OD SCH ×3 (10:00→10:11)
[2021-03-06] MEDS ORDERED: CHONDROITIN-SOD-HYALURONATE 0.5 ML DISP.SYRIN. ONE (11:15)
[2021-03-06] MEDS ORDERED: NEO/POLYMYX/DEXAMETH OPHTH OINTMENT 3.5GM TUBE. ONE (11:15)
[2021-03-06] MEDS ORDERED: LIDOCAINE 1%/PHENYLEPH 1.5% PF OPHTH 1 ML VIAL. ONE (11:15)
[2021-03-06] MEDS ORDERED: CHONDROIT-SOD-HYALURONATE KIT. ONE (11:15)
[2021-03-06 12:19] VITALS: BP 143/65
[2021-03-06] MEDS ORDERED: acetaZOLAMIDE 250 MG TABLET. PO ONE (14:15)
--- NOTE | 2021-03-06 18:30 | OP ---
DATE OF SURGERY: 03/06/2021 PREOPERATIVE DIAGNOSIS: Senile cataract, right eye. POSTOPERATIVE DIAGNOSIS: Senile cataract, right eye. PROCEDURE: Phacoemulsification with posterior chamber lens implant, right eye. ANESTHESIA: Topical with MAC. DESCRIPTION: The patient was dilated and then anesthetic drops were applied in the outpatient department and the [place] balloon cuff was used for about 10 minutes. The patient was then brought to the operating room, positioned on the table. The right eye was prepped and draped in the usual sterile manner for an intraocular procedure. A lid speculum was placed between the eyelids and the operating microscope brought into position. A paracentesis incision was made superotemporally and intraocular dilating agent was injected into the eye, followed by an injection of Viscoat. A 2.4 mm incision was then made temporally and a capsulorrhexis was made without difficulty. The lens nucleus was hydrodissected and phacoemulsified with the phaco handpiece. The remaining cortical material was removed with the I/A handpiece. Provisc was then used to insufflate the bag and a posterior chamber lens was placed into the bag without difficulty. The Provisc was aspirated with the I/A handpiece. The eye was pressurized by hydrating the wound and the wounds were checked for leaks and there were none. The speculum and drape were removed and Maxitrol ointment instilled in the conjunctival sac and the eye was shielded. The patient was taken to the recovery room in satisfactory condition. There were no complications. CATIE DR: Bowen TID: [id number]
== END 2021-03-06 13:01 | disposition home or self-care (01) ==
LOC: SURG 09:22
PROVIDERS: ATTEND Ophthalmology
DX: E11.36 Type 2 diabetes mellitus with diabetic cataract (principal); H25.89 Other age-related cataract; I10 Essential (primary) hypertension; E78.00 Pure hypercholesterolemia, unspecified; E66.9 Obesity, unspecified; K21.9 Gastro-esophageal reflux disease without esophagitis; E03.9 Hypothyroidism, unspecified; M19.90 Unspecified osteoarthritis, unspecified site; Z90.49 Acquired absence of other specified parts of digestive tract; Z90.710 Acquired absence of both cervix and uterus; Z98.890 Other specified postprocedural states; Z79.84 Long term (current) use of oral hypoglycemic drugs; Z79.899 Other long term (current) drug therapy; Z88.0 Allergy status to penicillin; Z88.1 Allergy status to other antibiotic agents; Z88.2 Allergy status to sulfonamides; Z88.8 Allergy status to other drugs, medicaments and biological substances
CPT/HCPCS: 66984; 82962; J0171; J3490; V2632

== ENCOUNTER 2021-03-20 10:51 | Day surgery (SDC) | payer MEDICARE ==
[~2021-03-20] VITALS: Ht 172.7 cm; Wt 124.0 kg
[~2021-03-20 10:51] MED LIST changes: -LIDOCAINE 2% JELLY 6ML IN APPLICATOR. OD ONE; +LIDOCAINE 2% JELLY 6ML IN APPLICATOR. OS ONE; -PROPARACAINE 0.5% OPHTH SOLUTION 15ML BOTTLE. OD ONE; +PROPARACAINE 0.5% OPHTH SOLUTION 15ML BOTTLE. OS ONE; -TOBRAMYCIN 0.3% OPHTH SOLUTION 5ML BOTTLE. OD ONE; +TOBRAMYCIN 0.3% OPHTH SOLUTION 5ML BOTTLE. OS ONE
[2021-03-20] MEDS ORDERED: INSULIN LISPRO 100 UNIT/ML 3ML VIAL for OP,RR ONLY. SQ PRN (11:00)
[2021-03-20 11:22] VITALS: BP 158/70
[2021-03-20] MEDS: PHENYLEPHRINE 10% OPHTH SOLUTION 5ML BOTTLE. OS SCH ×3 (11:33→11:43)
[2021-03-20] MEDS: CYCLOPENTOLATE 2% OPHTH SOLUTION 2ML BOTTLE. OS SCH ×3 (11:33→11:43)
[2021-03-20] MEDS ORDERED: CHONDROIT-SOD-HYALURONATE KIT. ONE (11:40)
[2021-03-20] MEDS ORDERED: NEO/POLYMYX/DEXAMETH OPHTH OINTMENT 3.5GM TUBE. ONE (11:40)
[2021-03-20] MEDS ORDERED: LIDOCAINE 1%/PHENYLEPH 1.5% PF OPHTH 1 ML VIAL. ONE (11:40)
[2021-03-20] MEDS ORDERED: INSULIN LISPRO 100 UNIT/ML 3ML VIAL for OP,RR ONLY. SQ ONE (11:50)
[2021-03-20 13:49] VITALS: BP 159/68
--- NOTE | 2021-03-21 13:50 | OP ---
DATE OF SURGERY: 03/20/2021 PREOPERATIVE DIAGNOSIS: Senile cataract, left eye. POSTOPERATIVE DIAGNOSIS: Senile cataract, left eye. PROCEDURE: Phacoemulsification with posterior chamber lens implant, left eye. ANESTHESIA: Topical with MAC. DESCRIPTION OF PROCEDURE: The patient is dilating and anesthetic drops were applied in the holding room and the [place] balloon cuff was used for about 10 minutes. The patient was then brought to the operating room, positioned on the table and the left eye was prepped and draped in the usual sterile manner for an intraocular procedure. A lid speculum was placed between the eyelids and the operating microscope was brought into position. A paracentesis incision was made inferotemporally and Phenylid was injected into the anterior chamber followed by an injection of Viscoat. The primary 2.4 mm incision was then made temporally. A circular tear capsulorrhexis was performed without difficulty and the lens nucleus was hydrodissected. The nucleus was then phacoemulsified with a phaco handpiece. The remaining cortex was aspirated with the I/A handpiece. Provisc was then used to insufflate the bag and a posterior chamber lens was injected into the bag without difficulty. Provisc was aspirated with the I/A handpiece. The wound was hydrated and the eye pressurized and checked for leaks and there were none. The speculum and drape were removed and Maxitrol ointment instilled in the conjunctival sac and the eye was shielded. There were no complications. I will see the patient in the next few days in my office. CHERYL DR: Bowen TID: [id number]
== END 2021-03-20 14:12 | disposition home or self-care (01) ==
LOC: SURG 10:51
PROVIDERS: ATTEND Ophthalmology
DX: E11.36 Type 2 diabetes mellitus with diabetic cataract (principal); H25.89 Other age-related cataract; I10 Essential (primary) hypertension; E78.00 Pure hypercholesterolemia, unspecified; E66.9 Obesity, unspecified; K21.9 Gastro-esophageal reflux disease without esophagitis; E03.9 Hypothyroidism, unspecified; M19.90 Unspecified osteoarthritis, unspecified site; Z90.49 Acquired absence of other specified parts of digestive tract; Z90.710 Acquired absence of both cervix and uterus; Z98.890 Other specified postprocedural states; Z79.899 Other long term (current) drug therapy; Z79.4 Long term (current) use of insulin; Z88.0 Allergy status to penicillin; Z88.1 Allergy status to other antibiotic agents; Z88.2 Allergy status to sulfonamides; Z88.8 Allergy status to other drugs, medicaments and biological substances
CPT/HCPCS: 66984; 82962; J0171; J1815; J3490; V2632